=== PATIENT | female | born 1980 | race Caucasian/White ===

== ENCOUNTER 2016-09-24 01:52 | Emergency (ER) | payer SELFPAY ==
[~2016-09-24] VITALS: Ht 175.3 cm; Wt 67.6 kg
[2016-09-24 02:56] LABS: HEMOGLOBIN 13.8 g/dL (11.7-16.4)
[2016-09-24] MEDS ORDERED: SODIUM CHLORIDE 0.9% 1,000ML IVBOLUS ONE (03:00)
[2016-09-24] MEDS ORDERED: MORPHINE SULFATE 4 MG/ML, 1ML ONE ×2 (03:00→03:38)
[2016-09-24] MEDS ORDERED: ONDANSETRON 2MG/ML, 2ML ONE (03:00)
[2016-09-24] MEDS ORDERED: ONDANSETRON 2MG/ML, 2ML IVPush ONE (03:00)
[2016-09-24] MEDS ORDERED: SODIUM CHLORIDE FLUSH 10ML SYR IVF ONE (03:00)
[2016-09-24 03:06] LABS: BLOOD UREA NITROGEN 10 mg/dL (7-18)
[2016-09-24] MEDS: MORPHINE SULFATE 4 MG/ML, 1ML IVPush PRN ×2 (03:06→03:40)
[2016-09-24 03:29] LABS: PATH.CAST-FLAG NOT PRESENT; SPERM-FLAG NOT PRESENT; SRC-FLAG NOT PRESENT; XTAL-FLAG NOT PRESENT; YLC-FLAG NOT PRESENT
[2016-09-24] MEDS ORDERED: OMNIPAQUE 350 MG/ML, 100ML BOTTLE ONE (04:52)
[2016-09-24 05:13] VITALS: BP 129/83
== END 2016-09-24 05:39 | disposition home or self-care (01) ==
LOC: ED 03:50
DX: N83.291 Other ovarian cyst, right side (principal); R10.2 Pelvic and perineal pain; R10.13 Epigastric pain
CPT/HCPCS: 36415; 74177; 76830; 80048; 81003; 82040; 84703; 85025; 87086; 96361; 96374; 96375; 96376; 99285; J2405; J7030; Q9967

== ENCOUNTER 2017-03-25 01:10 | Emergency (ER) | payer MEDICAID, OTHER ==
[~2017-03-25] VITALS: Ht 175.3 cm; Wt 70.3 kg
[2017-03-25 01:13] VITALS: BP 101/69
== END 2017-03-25 02:08 | disposition home or self-care (01) ==
LOC: ED 01:52
DX: K02.9 Dental caries, unspecified (principal); K04.7 Periapical abscess without sinus; L03.211 Cellulitis of face; K05.10 Chronic gingivitis, plaque induced; R25.2 Cramp and spasm; F17.200 Nicotine dependence, unspecified, uncomplicated
CPT/HCPCS: 99283

== ENCOUNTER 2017-03-30 07:09 | Emergency (ER) | payer MEDICAID ==
[~2017-03-30] VITALS: Ht 175.3 cm; Wt 70.2 kg
[2017-03-30 07:11] VITALS: BP 124/76
[2017-03-30] MEDS ORDERED: HYDR-3237 PO (07:38)
[2017-03-30] MEDS ORDERED: PENICILLIN PO (07:38)
[2017-03-30] MEDS ORDERED: CLINDAMYCIN 300 MG CAPSULE ONE (07:41)
[2017-03-30] MEDS ORDERED: HYDROcodone/APAP 5/325 TABLET ONE (07:41)
[2017-03-30] MEDS ORDERED: HYDROcodone/APAP 5/325 TABLET PO ONE (08:00)
[2017-03-30] MEDS ORDERED: CLINDAMYCIN 300 MG CAPSULE PO ONE (08:00)
== END 2017-03-30 07:55 | disposition home or self-care (01) ==
LOC: ED 07:47
DX: K04.7 Periapical abscess without sinus (principal); K02.9 Dental caries, unspecified
CPT/HCPCS: 99283

== ENCOUNTER 2017-04-08 00:57 | Emergency (ER) | payer MEDICAID ==
[~2017-04-08] VITALS: Ht 175.3 cm; Wt 69.8 kg
[~2017-04-08 00:57] MED LIST: HYDR-3237 PO; PENICILLIN PO
[2017-04-08 00:59] VITALS: BP 116/78
[2017-04-08] MEDS ORDERED: CLIN300C8 PO (01:25)
[2017-04-08] MEDS ORDERED: HYDROcodone/APAP 5/325 TABLET ONE (01:48)
[2017-04-08] MEDS ORDERED: HYDROcodone/APAP 5/325 TABLET PO ONE (02:00)
== END 2017-04-08 02:23 | disposition home or self-care (01) ==
LOC: ED 01:18
DX: K04.6 Periapical abscess with sinus (principal); K02.9 Dental caries, unspecified
CPT/HCPCS: 99283

== ENCOUNTER 2019-05-17 13:00 | Emergency (ER) | payer SELFPAY ==
[~2019-05-17] VITALS: Ht 175.3 cm; Wt 73.0 kg
[~2019-05-17 13:00] MED LIST changes: +CLIN300C8 PO
--- NOTE | 2019-05-17 13:56 | NUR ---
PT TO ROOM FROM LOBBY GAIT SLOW AND STEADY
[2019-05-17] MEDS ORDERED: PHENAZOPYRIDINE 200 MG TABLET PO ONE (14:00)
[2019-05-17] MEDS ORDERED: HYDROcodone/APAP 5/325 TABLET ONE (14:27)
[2019-05-17] MEDS ORDERED: PHENAZOPYRIDINE 200 MG TABLET ONE (14:27)
[2019-05-17] MEDS ORDERED: HYDROcodone/APAP 5/325 TABLET PO ONE (14:30)
--- NOTE | 2019-05-17 14:43 | NUR ---
pt medicated per emar, tolerated well. pt states she came to ED for dysuria x 1 week, denies any other sx. pt attached to bp and spo2 monitors. call light in reach. awaiting ua results and dispo.
--- NOTE | 2019-05-17 14:59 | NUR ---
REPORT GIVEN TO KRISTINA MILLER. PT AWAITING UA RESULTS AND DISPO.
[2019-05-17 15:09] LABS: MICROSCOPIC INDICATED
[2019-05-17 15:10] LABS: CULTURE INDICATED? YES
--- NOTE | 2019-05-17 15:20 | NUR ---
PT CHART UP FOR RECHECK. NAD NOTED IN PT AT THIS TIME. FAMILY AT BEDSIDE.
[2019-05-17 15:26] VITALS: BP 115/81
--- NOTE | 2019-05-17 15:27 | NUR ---
RECHECK ON PT, WHO REPORTS "WHEN I FIRST CAME IN IT WAS LIKE 11", NOW PAIN 11/30. RESPIRATIONS EVEN AND UNLABORED ON RA. SIDE RAIL UP, CALL LIGHT IN REACH. AWAITING RECHECK.
[2019-05-17] MEDS ORDERED: CEFTRIAXONE 1,000 MG ONE (15:45)
--- NOTE | 2019-05-17 15:56 | NUR ---
MED ADMINISTERED, MONITORING FOR REACTION AND THEN PLAN FOR DC. PT DRESSING.
[2019-05-17] MEDS ORDERED: CEFTRIAXONE 1,000 MG IM ONE (16:00)
[2019-05-17 16:01] LABS: HCG UR SG 1.024 (1.003-1.030)
== END 2019-05-17 16:14 | disposition home or self-care (01) ==
LOC: ED 16:00
DX: N30.00 Acute cystitis without hematuria (principal); R10.2 Pelvic and perineal pain
CPT/HCPCS: 81001; 81025; 87077; 87086; 96372; 99283; J0696; 87186